=== PATIENT | male | born 1950 | race Caucasian/White ===

== ENCOUNTER 2020-06-28 14:27 | Observation (INO) | payer MEDICARE ==
[2020-06-28 14:44] LABS: ABSOLUTE BASOPHILS # (AUTO) 0.1 10^3/uL (0.0-0.2); ABSOLUTE EOSINOPHILS # (AUTO) 0.3 10^3/uL (0.0-0.6); ABSOLUTE LYMPHOCYTES (AUTO) 1.8 10^3/uL (0.5-4.7); ABSOLUTE MONOCYTES (AUTO) 0.6 10^3/uL (0.1-1.4); ABSOLUTE NEUT (AUTO) 5.1 10^3/uL (1.7-8.2); BASOPHILS % (AUTO) 1.2 % (0-2); EOSINOPHILS % (AUTO) 3.9 % (0-6); HEMATOCRIT 45.2 % (37.9-51.0); HEMOGLOBIN 15.7 g/dL (13.5-17.0); LYMPHOCYTES % (AUTO) 22.6 % (13-45); MEAN CORPUSCULAR HGB CONC 34.7 g/dL (32.0-36.0); MEAN CORPUSCULAR VOLUME 95 fl (80-97); PLATELET COUNT 207 10^3/uL (150-450); RED BLOOD COUNT 4.76 10^6/uL (4.35-5.55); RED CELL DISTRIBUTION WIDTH 12.8 % (11.5-14.0); SEGMENTED NEUTROPHILS % (AUTO) 64.3 % (42-78); TOTAL CELLS COUNTED % (AUTO) 100 %; WHITE BLOOD COUNT 7.9 10^3/uL (4.0-10.5)
--- NOTE | 2020-06-28 14:44 | RADIOLOGY REPORT (SQ) ---
EXAM DESCRIPTION: CT HEAD WITHOUT IMAGES COMPLETED DATE/TIME: 06/28/2020 2:35 pm REASON FOR STUDY: stroke s/s COMPARISON: None. TECHNIQUE: Axial images acquired through the brain without intravenous contrast. Images reviewed wi th bone, brain and subdural windows. Additional sagittal and coronal reconstructions were generated. Images stored on PACS. All CT scanners at this facility use dose modulation, iterative reconstruction, and/or weight based d osing when appropriate to reduce radiation dose to as low as reasonably achievable (ALARA). [facility]: Dose Right [facility]: CareDose [facility]: Dose Right [facility]: Teradose 4D [facility]: nanoTherics RADIATION DOSE: mGy. LIMITATIONS: None. FINDINGS: VENTRICLES: Prominent. CEREBRUM: No masses. No hemorrhage. No midline shift. Areas of low density in the white matter mos t likely due to chronic micro-vascular ischemic change. No evidence for acute infarction. CEREBELLUM: No masses. No hemorrhage. No alteration of density. No evidence for acute infarction. EXTRAAXIAL SPACES: Mild age-related involutional change. No fluid collections. No masses. ORBITS AND GLOBE: No intra- or extraconal masses. Normal contour of globe without masses. CALVARIUM: No fracture. PARANASAL SINUSES: No fluid or mucosal thickening. SOFT TISSUES: No mass or hematoma. OTHER: No other significant finding. IMPRESSION: MILD CHRONIC CHANGES OF ATROPHY AND MICROVASCULAR ISCHEMIA. NO ACUTE PROCESS. EVIDENCE OF ACUTE STROKE: NO. COMMENT: Pertinent positive or negative findings of the imaging study reported as a CRITICAL EXAM shirlene Kenny at14:36 on 06/28/2020. Category of Critical Exam: Stroke protocol TECHNICAL DOCUMENTATION: JOB ID: [id number] Quality ID # [id number]: Final reports with documentation of one or more dose reduction techniques (e.g., Au tomated exposure control, adjustment of the mA and/or kV according to patient size, use of iterative reconstruction technique) 2010 [employer]- All Rights Reserved Reading location - IP/workstation name: [email or web address]
--- NOTE | 2020-06-28 14:44 | RADIOLOGY REPORT (SQ) ---
EXAM DESCRIPTION: CHEST SINGLE VIEW IMAGES COMPLETED DATE/TIME: 06/28/2020 2:36 pm REASON FOR STUDY: stroke s/s COMPARISON: None. EXAM PARAMETERS: NUMBER OF VIEWS: One view. TECHNIQUE: Single frontal radiographic view of the chest acquired. RADIATION DOSE: NA LIMITATIONS: None. FINDINGS: LUNGS AND PLEURA: No opacities, masses or pneumothorax. No pleural effusion. MEDIASTINUM AND HILAR STRUCTURES: No masses. Contour normal. HEART AND VASCULAR STRUCTURES: Heart normal in size. Normal vasculature. BONES: No acute findings. HARDWARE: None in the chest. OTHER: No other significant finding. IMPRESSION: NO ACUTE RADIOGRAPHIC FINDING IN THE CHEST. TECHNICAL DOCUMENTATION: JOB ID: [id number] 2010 [employer]- All Rights Reserved Reading location - IP/workstation name: [email or web address]
[2020-06-28 14:47] LABS: INTERNATIONAL RATION (INR) 0.94; PARTIAL THROMBOPLASTIN TIME 32.5 SEC (23.5-35.8)
[2020-06-28 14:50] LABS: PROTHROMBIN TIME 12.8 SEC (11.4-15.4)
[2020-06-28 15:00] LABS: ALBUMIN 4.2 g/dL (3.5-5.0); ALKALINE PHOSPHATASE 75 U/L (38-126); ANION GAP 14 (5-19); ASPARTATE AMINO TRANSFERASE 26 U/L (17-59); BILIRUBIN,DIRECT 0.3 mg/dL (0.0-0.4); BILIRUBIN,TOTAL 0.7 mg/dL (0.2-1.3); BLOOD UREA NITROGEN 23 mg/dL (7-20); CALCIUM 10.5 mg/dL (8.4-10.2); CARBON DIOXIDE 23 mmol/L (22-30); CHLORIDE 97 mmol/L (98-107); CREATINE KINASE 35 U/L (55-170); POTASSIUM 4.8 mmol/L (3.6-5.0); TOTAL PROTEIN 6.8 g/dL (6.3-8.2)
[2020-06-28 15:12] LABS: CREATINE KINASE MB 1.14 ng/mL (<4.55)
[2020-06-28 15:14] LABS: GLUCOSE 525 mg/dL (75-110)
[2020-06-28 15:18] LABS: TROPONIN I < 0.012 ng/mL
[2020-06-28] MEDS ORDERED: NORMAL SALINE 1000 ML 1,000 ML IV ONE (15:43)
[2020-06-28] MEDS ORDERED: INSULIN REG, HUMAN 100 UNIT/ML 3 ML VIAL (PYX) IV ONE (15:43)
--- NOTE | 2020-06-28 15:46 | ER Document Report ---
ED Neuro Symptoms/Deficit - General Chief Complaint: S/S of Possible Stroke Stated Complaint: POSSIBLE STROKE Mode of Arrival: Medic Notes: 69-year-old man presenting to the emergency department with a history of onset of strokelike symptoms at approximately 10 AM this morning (06/28/2020). He notes slurred speech, weakness on the left side, unsteady gait, and dizziness. EMS was called and the patient was transported to the emergency department, he said his symptoms were improving however, there was some residual heaviness on the left side. Patient has a history of diabetes mellitus, right lower extremity DVT approximate 1/2 years ago he was being treated with Xarelto. He discontinued the medication 4 days ago. He denies cigarette smoking, hypertension, or a significant family history of CVA. - Related Data Allergies/Adverse Reactions: No Known Allergies Allergy (Unverified 06/28/20 15:34) Past Medical History - Social History Smoking Status: Unknown if Ever Smoked Family History: Reviewed & Not Pertinent Review of Systems - Review of Systems Notes: Constitutional: Negative for fever. HENT: Negative for sore throat. Eyes: Negative for visual changes. Cardiovascular: Negative for chest pain. Respiratory: Negative for shortness of breath. Gastrointestinal: Negative for abdominal pain, vomiting or diarrhea. Genitourinary: Negative for dysuria. Musculoskeletal: Negative for back pain. Skin: Negative for rash. Neurological: + Speech difficulties, + dizziness, + left-sided weakness 10 point ROS negative except as marked above and in HPI. Physical Exam - Vital signs Vitals: Pulse Resp BP Pulse Ox 105 H 16 167/105 H 98 06/28/20 14:30 06/28/20 14:30 06/28/20 14:30 06/28/20 14:30 - Notes Notes: PHYSICAL EXAMINATION: Physical Exam: General: Well-nourished well-developed 69-year-old man in no acute distress HEENT: NC/AT, pupils equal round and reactive to light, MM moist,nares clear, oropharynx clear, airway patent Neck: supple, no adenopathy, no masses. Good range of motion Lungs: clear, no wheezing, no rales no rhonchi CVS: Regular rate and rhythm no murmur gallop or rub Abdomen: Soft, active, nontender, no masses, no hepatosplenomegaly Ext: No edema, clubbing or cyanosis. Neuro: Alert and responsive, moving all 4 extremities on command, cranial nerves intact, speech normal, cerebellar function intact, no focal sensory or motor abnormalities noted. Skin: Intact no open lesions, no rash Course - Re-evaluation Re-evalutation: 06/28/20 15:57 Patient presented to the emergency department with an approximate 4-hour duration of strokelike symptoms. To have an elevated glucose greater than 500 in the emergency department, neurologic deficits have resolved completely. CT scan head reveals no hemorrhage, no apparent CVA. Patient is given IV fluids and a bolus dose of regular Humulin 8 units. Given the duration of his symptoms and admission for further evaluation and treatment is warranted. 06/28/20 20:49 I discussed the patient with the hospitalist, , he will admit the patient to the hospital for further evaluation and treatment. - Vital Signs Vital signs: Temp Pulse Resp BP Pulse Ox 105 H 12 141/68 H 94 06/28/20 14:30 06/28/20 15:01 06/28/20 15:00 06/28/20 15:01 - Laboratory Result Diagrams: 06/28/20 14:30 06/28/20 14:30 Laboratory results interpreted by me: 06/28/20 14:30 Sodium 133.5 L Chloride 97 L BUN 23 H Glucose 525 H* Calcium 10.5 H Creatine Kinase 35 L - Diagnostic Test Radiology reviewed: Image reviewed, Reports reviewed Radiology results interpreted by me: 06/28/20 15:59 Chest X-Ray 06/28/20 14:30 IMPRESSION: NO ACUTE RADIOGRAPHIC FINDING IN THE CHEST. Head CT 06/28/20 14:30 IMPRESSION: MILD CHRONIC CHANGES OF ATROPHY AND MICROVASCULAR ISCHEMIA. NO ACUTE PROCESS. EVIDENCE OF ACUTE STROKE: NO. - EKG Interpretation by Me Rate: Tachycardia - EKG interpreted by Dr. Kenny: Sinus tachycardia, rate 104, GA interval 196 ms, QT interval 332 ms, left axis deviation, no acute ST or T wave abnormalities, no ischemic findings, there is no prior EKG to compare. Interpretation: Sinus tachycardia ED Alteplase Inc/Exc Criteria - Inclusion Criteria: 1: Patient presented to ED within 3 hours of acute ischemic stroke symptom onset? -: No - Greater than 4 hours of symptoms 2: Did baseline CT exclude intracranial hemorrhage and/or other risk factors? -: No 3: Is the age of the patient 18 years of age or greater? -: Yes : If any of the above questions are answered "NO" then stop, patient is not a candidate for Alteplase, : If all of the above questions are answered "YES" then continue with Exclusion Criteria. - Exclusion Criteria: 1: Is there evidence of intracranial hemorrhage on baseline CT? 2: Is there suspicion of subarachnoid hemorrhage (even if CT negative)? 3: Is there a history of serious head trauma, recent previous stroke or AR within 3 months? 4: Does the patient have a clinical presentation consistent with AR or post-AR pericarditis? 5: Is there history of intracranial hemorrhage? 6: On repeated measurement is Systolic BP greater than 185mmHg or Diastolic BP greater that 110 mmHg and is aggressive treatment needed to reduce blood pressure to these limits (e.g. constant infusion of an anti-hypertensive)? 7: Did the patient awake with stroke symptoms? 8: Has the patient had a lumbar puncture or an arterial puncture at a non- compressile site within 7 days? 9: With in the last 14 days did the patient have surgery or major trauma? 10: Is the patient or less than 2 weeks? 11: Was there any active bleeding or acute trauma? 12: Does the patient have intracranial neoplasm, arteriovenous malformation or aneurysm? 13: Does the patient have abnormal glucose (less than 50 or greater than 400mg/dl)? Record glucose in Comment. 14: Patient has rapidly improving symptoms at the time Alteplase is to be Administered. 15: Does the patient have any risks for bleeding, including but not limited to: a.: Current use of Coumadin with PT greater than 15 seconds or INR greater than 1.7. b.: Current use of Pradaxa (Dabigatran). c.: Heparin administereed within the past 48 hours and PTT elevated. d.: Platelet count less than 100,000/mm. e.: Major surgery or serious trauma within 14 days. f.: Gastrointestinal or gynecological urinary bleeding within 14 days. g.: Myocardial Infarction (AR) within 3 months. : If the answer to any of the above questions is "YES" then stop, the patient is not a candidate for Alteplase. : If the answer to all of the above questions is "NO" then the patient may be eligible for the Administration of Alteplase. : If the patient is noted to have seizure activity at onset of Stroke symptoms; Consult Neurologist for further evaluation. - The patient is: -: Included and is eligible to receive Alteplase. *Initiate bed placement at higher level of care* Reviewed risks & benefits of thrombolytic therapy: I have reviewed the risks and benefits of thrombolytic therapy with the patient and/or his/her family. -: Excluded and not eligible to receive Alteplase for the above exclusions. -: Excluded and not eligible to receive Alteplase for other reasons (specify in comments): - Diagnosis of TIA: -: Patient presented with transient symptoms that are now resolved and no other neurologic findings are currently present. List symptoms in comments. -: Yes -: Patient is NOT a candidate for tPA. -: Yes -: ____(put name in comment) has been consulted for admission and con tinued evaluation of risk factor assessment. Discharge - Discharge Clinical Impression: TIA (transient ischemic attack), Poorly controlled diabetes mellitus Condition: Good Disposition: ADMITTED OBSERVATION Admitting Provider: Fercho (Hospitalist) Unit Admitted: [facility], [place]
--- NOTE | 2020-06-28 16:11 | EKG REPORT ---
SEVERITY:- ABNORMAL ECG - SINUS TACHYCARDIA LAD, CONSIDER LAFB OR INFERIOR INFARCT : Confirmed by: Andrey Dias MD 28-Jun-2020 16:10:15
[2020-06-28] MEDS ORDERED: ASPIRIN 325 MG TABLET PO ONE (16:42)
[2020-06-28] MEDS ORDERED: ACETAMINOPHEN 325 MG TABLET PO PRN (17:49)
[2020-06-28] MEDS ORDERED: DOCUSATE SODIUM 100 MG CAPSULE PO PRN (17:58)
[2020-06-28] MEDS ORDERED: ONDANSETRON HCL INJ/PF 4 MG/2 ML SDV IV PRN (17:58)
[2020-06-28] MEDS ORDERED: DEXTROSE 40% GEL 15 GM TUBE PO PRN ×2 (18:09)
[2020-06-28] MEDS ORDERED: DEXTROSE 50%-WATER 25 GM/50 ML DISP.SYRIN IV PRN ×2 (18:09)
[2020-06-28] MEDS ORDERED: GLUCAGON,HUMAN RECOMB 1 MG INJ IM PRN (18:09)
--- NOTE | 2020-06-28 18:19 | PDOC H&P ---
History of Present Illness Admission Date/PCP: 06/28/20 16:48 LAKIA NICHOLAS PA-C Patient complains of: strokelike symptoms History of Present Illness: MIHIR PERDOMO is a 69 year old male with history of diabetes mellitus not on any meds, DVT a year ago on Xarelto, who presents to the hospital with complaints of sudden onset of neurological symptoms. At 10:30 AM this morning, patient began having left-sided paresthesias in his left face, left arm and left leg. He also had accompanying weakness in his limbs. He also developed mild slurring of his speech. He called the son I saw and asked him to come to the hospital. On arrival in the ER, patient endorsed almost total resolution of his symptoms. I was informed patient was already out of the TPA window upon arrival and symptoms had essentially resolved. My encounter, patient states he is mostly back to normal with exception of some mild numbness in his left forearm. Denies any shortness of breath, chills or chest pain. Denies any prior history of strokes or TIAs. States he was diagnosed with a DVT a year ago after having a long [place] trip. Was on Xarelto but states that he is primary care doctor wanted to try him on another 3 months of Xarelto. That was a first time VTE event for him. Past Medical History Cardiac Medical History: Reports: DVT Endocrine Medical History: Reports: Diabetes Mellitus Type 2 Past Surgical History Past Surgical History: Reports: Orthopedic Surgery - left Social History Smoking Status: Never Smoker Electronic Cigarette use?: No Hx Recreational Drug Use: No - Advance Directive Resuscitation Status: Full Code Family History Family History: Other - heart aneurysm in mother. denies: CAD, CVA Parental Family History Reviewed: Yes Children Family History Reviewed: Yes Sibling(s) Family History Reviewed.: Yes Medication/Allergy Allergies/Adverse Reactions: No Known Allergies Allergy (Unverified 06/28/20 15:34) Review of Systems Constitutional: ABSENT: chills, fatigue, fever(s), headache(s) Eyes: ABSENT: visual disturbances Ears: ABSENT: hearing changes Nose, Mouth, and Throat: ABSENT: headache(s) Cardiovascular: ABSENT: chest pain Respiratory: ABSENT: cough, dyspnea Gastrointestinal: ABSENT: abdominal pain, diarrhea, nausea, vomiting Genitourinary: ABSENT: dysuria Integumentary: ABSENT: diaphoresis Neurological: PRESENT: as per HPI, dizziness, numbness, paresthesias Psychiatric: ABSENT: anxiety, hallucinations Endocrine: ABSENT: polyuria Allergic/Immunologic: ABSENT: seasonal rhinorrhea Physical Exam Vital Signs: Temp Pulse Resp BP Pulse Ox 98.6 F 105 H 20 160/92 H 97 06/28/20 14:51 06/28/20 14:30 06/28/20 17:01 06/28/20 17:01 06/28/20 17:01 Intake & Output 06/27/20 06/28/20 06/29/20 06:59 06:59 06:59 Intake Total 1000 Balance 1000 Weight 78 kg General appearance: PRESENT: no acute distress, cooperative Head exam: PRESENT: normocephalic Eye exam: PRESENT: EOMI, PERRLA. ABSENT: nystagmus, scleral icterus Mouth exam: PRESENT: neck supple Neck exam: ABSENT: JVD Respiratory exam: PRESENT: clear to auscultation yi, symmetrical, unlabored. ABSENT: tachypnea, wheezes Cardiovascular exam: PRESENT: RRR, +S1, +S2. ABSENT: tachycardia GI/Abdominal exam: PRESENT: soft. ABSENT: rebound, rigid, tenderness Extremities exam: ABSENT: calf tenderness Neurological exam: PRESENT: alert, awake, oriented to person, oriented to place, oriented to time, oriented to situation, ataxia - mild left hand ataxia on FNF test. otherwise unremarkable, CN II-XII grossly intact. ABSENT: motor sensory deficit, aphasic Psychiatric exam: ABSENT: agitated, anxious Focused psych exam: ABSENT: restlessness Skin exam: ABSENT: jaundice Results Laboratory Results: 06/28/20 14:30 06/28/20 14:30 06/28/20 06/28/20 14:30 14:30 WBC 7.9 RBC 4.76 Hgb 15.7 Hct 45.2 MCV 95 MCH 33.0 MCHC 34.7 RDW 12.8 Plt Count 207 Seg Neutrophils % 64.3 Sodium 133.5 L Potassium 4.8 Chloride 97 L Carbon Dioxide 23 Anion Gap 14 BUN 23 H Creatinine 0.71 Est GFR ( Amer) > 60 Glucose 525 H* Calcium 10.5 H Total Bilirubin 0.7 AST 26 Alkaline Phosphatase 75 Total Protein 6.8 Albumin 4.2 06/28/20 06/28/20 14:30 14:30 Creatine Kinase 35 L CK-MB (CK-2) 1.14 Troponin I < 0.012 Impressions: Chest X-Ray 06/28/20 14:30 IMPRESSION: NO ACUTE RADIOGRAPHIC FINDING IN THE CHEST. Head CT 06/28/20 14:30 IMPRESSION: MILD CHRONIC CHANGES OF ATROPHY AND MICROVASCULAR ISCHEMIA. NO ACUTE PROCESS. EVIDENCE OF ACUTE STROKE: NO. Assessment and Plan - Diagnosis (1) Stroke or transient ischemic attack (TIA) diagnosed during current admission Is this a current diagnosis for this admission?: Yes Plan: Likely patient had a TIA but is still possible it could have been a stroke as he does have a minimal ataxia of his left arm. At max his NIH score will be a 1 or 2. We will put patient on stroke protocol for now but once again bearing in mind that it is likely just had a TIA. Permissive hypertension Head CT is unremarkable Check MRI brain Carotid ultrasound Echocardiogram as outpatient Placed on cardiac monitoring EKG in the morning Lipid panel Aspirin, atorvastatin and Plavix (2) Hyperglycemia due to diabetes mellitus Is this a current diagnosis for this admission?: Yes Plan: Blood glucose in the 500s. Patient is notably not on any diabetic meds. He has tried insulin in the past but did not like the reaction. We will check hemoglobin A1c Received some IV insulin and normal saline bolus in the ER. Accu-Cheks and sliding scale insulin initiated (3) History of DVT (deep vein thrombosis) Is this a current diagnosis for this admission?: Yes Plan: History of provoked DVT a year ago ideally should only require about 3 to 6 months max of therapy. However for some reason still on Xarelto. We will check venous Dopplers (4) Hyponatremia Is this a current diagnosis for this admission?: Yes Plan: Monitor metabolic panel. - Time Time Spent with patient: 35 or more minutes Anticipated Discharge Disposition: Home, Self Care Anticipated Discharge Timeframe: within 24 hours
--- NOTE | 2020-06-28 19:33 | RADIOLOGY REPORT (SQ) ---
EXAM DESCRIPTION: MRI HEAD WITHOUT IMAGES COMPLETED DATE/TIME: 06/28/2020 7:21 pm REASON FOR STUDY: stroke protocol R55 SYNCOPE AND COLLAPSE E08.65 DIABETES DUE TO UNDERLYING CONDI TION W HYPERGLYCEMIA E78.00 PURE HYPERCHOLESTEROLEMIA, UNSPECIFIED COMPARISON: None. Brain CT same day TECHNIQUE: Multiplanar imaging includes non-contrasted T1, T2, FLAIR, and Diffusion with ADC map seq uences. Images stored on PACS. LIMITATIONS: None. FINDINGS: ANATOMY: No anomalies. Normal vascular flow voids. Pituitary fossa normal. CSF SPACES: Normal in size and contour. No hemorrhage. CEREBRUM: A few high-signal intensity lesions scattered throughout the white matter on FLAIR imaging with distribution suggesting chronic micro-vascular ischemic change. Sulci and gyri normal in size a nd contour. No evidence of hemorrhage, mass or extraaxial fluid collection. POSTERIOR FOSSA: No signal alteration. No hemorrhage. No edema, masses or mass effect. Internal brandi tory canals, cerebello-pontine angles, mastoids normal. DIFFUSION: Restricted diffusion basal ganglia on the right. ORBITS: No masses. Globes normal. PARANASAL SINUSES: No fluid levels. Mucosa normal. OTHER: No other significant finding. IMPRESSION: Acute infarction basal ganglia on the right. Mild microvascular ischemic changes. EVIDENCE OF ACUTE STROKE: YES. RIGHT MCA. COMMENT: The findings were sent to the Radiology Results Communication Center at 19:26 on 0 to be communicated to a licensed caregiver. TECHNICAL DOCUMENTATION: JOB ID: [id number] 2010 [employer]- All Rights Reserved Reading location - IP/workstation name: [email or web address]
--- NOTE | 2020-06-28 19:34 | RADIOLOGY REPORT (SQ) ---
EXAM DESCRIPTION: MRA HEAD WITHOUT IMAGES COMPLETED DATE/TIME: 06/28/2020 7:21 pm REASON FOR STUDY: CVA R55 SYNCOPE AND COLLAPSE E08.65 DIABETES DUE TO UNDERLYING CONDITION W HYPER GLYCEMIA E78.00 PURE HYPERCHOLESTEROLEMIA, UNSPECIFIED COMPARISON: None. TECHNIQUE: Axial 3-D [id number] acquisition imaging performed through the brain in the area of t he [place]. Images reformatted using 3-D MIPS. LIMITATIONS: None. FINDINGS: SOURCE IMAGES: No unexpected findings on source images. No large masses. 3-D MIP: No aneurysm. No occlusions. No significant stenosis. OTHER: No other significant finding. IMPRESSION: NORMAL MRA OF THE [place] OF [place]. TECHNICAL DOCUMENTATION: JOB ID: [id number] 2010 [employer]- All Rights Reserved Reading location - IP/workstation name: [email or web address]
--- NOTE | 2020-06-28 20:34 | RADIOLOGY REPORT (SQ) ---
EXAM DESCRIPTION: US EXTREMITY VEINS BILATERAL COMPLETED DATE/TME: 06/28/2020 00:00 CLINICAL HISTORY: 69 years, Male, lower ext swelling. hx of dvt COMPARISON: None. TECHNIQUE: Axial 2-D grayscale images of the lower extremities were acquired. Doppler was utilized. LIMITATIONS: None. FINDINGS: Bilateral common femoral, femoral, popliteal, posterior tibial, peroneal, greater saphenous, and small saphenous veins demonstrate normal compressibility and phasicity bilaterally. Superficial soft tissues show no suspicious abnormality. IMPRESSION: No evidence of deep venous thrombosis about either lower extremity. copyright 2010 [employer]- All Rights Reserved
--- NOTE | 2020-06-28 20:38 | RADIOLOGY REPORT (SQ) ---
EXAM DESCRIPTION: US CAROTID DOPPLER BILATERAL COMPLETED DATE/TME: 06/28/2020 17:55 CLINICAL HISTORY: 69 years, Male, stroke/tia COMPARISON: None. TECHNIQUE: Axial 2-D grayscale images of the neck were acquired. Doppler was utilized. LIMITATIONS: None. FINDINGS: Duplex examination of the extracranial carotid artery systems was performed bilaterally. Areas of [id number] calcified and noncalcified atheromatous plaquing bilaterally. Vertebral artery flows are antegrade. Peak systolic (PS) and end diastolic (ED) velocities are as follows: RIGHT SIDE Proximal CCA: PS 82 cm/s. ED 16 cm/s. Distal CCA: PS 75 cm/s. ED 15 cm/s. Proximal ICA: PS 58 cm/s. ED 17 cm/s. Distal ICA: PS 70 cm/s. ED 27 cm/s. ECA: 98 cm/s. ICA/CCA PS ratio: 0.9 Vertebral artery: 29 cm/s; antegrade flow LEFT SIDE Proximal CCA: PS 99 cm/s. ED 13 cm/s. Distal CCA: PS 84 cm/s. ED 17 cm/s. Proximal ICA: PS 74 cm/s. ED 26 cm/s. Distal ICA: PS 70 cm/s. ED 27 cm/s. ECA: 103 cm/s. ICA/CCA PS ratio: 0.9 Vertebral artery: 34 cm/s; antegrade flow IMPRESSION: No evidence for hemodynamically significant stenosis in the extracranial carotid arteries bilaterally (less than 50% stenosis bilaterally). copyright 2010 [facility] [employer]- All Rights Reserved
[2020-06-28] MEDS: CLOPIDOGREL BISULFATE 75 MG TABLET PO SCH (21:44)
[2020-06-28] MEDS: INSULIN LISPRO 100 UNIT/ML 3 ML VIAL SUBCUT SCH (21:44)
[2020-06-28] MEDS: FAMOTIDINE 20 MG TABLET PO SCH (21:44)
[2020-06-28] MEDS ORDERED: ATORVASTATIN CALCIUM 80 MG TABLET PO SCH (22:00)
[2020-06-29] MEDS ORDERED: NORMAL SALINE 1000 ML 1,000 ML IV PRN (01:32)
[2020-06-29 05:17] LABS: HEMATOCRIT 44.1 % (37.9-51.0); HEMOGLOBIN 15.3 g/dL (13.5-17.0); MEAN CORPUSCULAR HEMOGLOBIN 32.6 pg (27.0-33.4); MEAN CORPUSCULAR HGB CONC 34.6 g/dL (32.0-36.0); MEAN CORPUSCULAR VOLUME 94 fl (80-97); PLATELET COUNT 202 10^3/uL (150-450); RED BLOOD COUNT 4.69 10^6/uL (4.35-5.55); RED CELL DISTRIBUTION WIDTH 12.9 % (11.5-14.0); WHITE BLOOD COUNT 6.7 10^3/uL (4.0-10.5)
[2020-06-29 05:26] LABS: ANION GAP 11 (5-19); BLOOD UREA NITROGEN 20 mg/dL (7-20); CALCIUM 9.7 mg/dL (8.4-10.2); CARBON DIOXIDE 23 mmol/L (22-30); CHLORIDE 103 mmol/L (98-107); CHOLESTEROL 152.72 mg/dL (0-200); GLUCOSE 299 mg/dL (75-110); POTASSIUM 4.3 mmol/L (3.6-5.0); TRIGLYCERIDES 102 mg/dL (<150)
[2020-06-29 05:37] LABS: DIRECT LDL 95 mg/dL (<100)
--- NOTE | 2020-06-29 07:02 | EKG REPORT ---
SEVERITY:- ABNORMAL ECG - SINUS RHYTHM LEFT ANTERIOR FASCICULAR BLOCK CONSIDER ANTERIOR INFARCT : Confirmed by: Andrey Dias MD 29-Jun-2020 07:00:50
[2020-06-29] MEDS: INSULIN LISPRO 100 UNIT/ML 3 ML VIAL SUBCUT SCH ×2 (07:54→11:52)
[2020-06-29] MEDS ORDERED: ASPIRIN 81 MG TABLET, ENT COATED PO SCH (10:00)
[2020-06-29] MEDS ORDERED: ENOXAPARIN SODIUM INJ 40 MG/0.4 ML DISP.SYRIN SUBCUT SCH (10:00)
[2020-06-29] MEDS: CLOPIDOGREL BISULFATE 75 MG TABLET PO SCH (10:46)
[2020-06-29] MEDS: FAMOTIDINE 20 MG TABLET PO SCH (10:46)
[2020-06-29] MEDS ORDERED: LOSARTAN POTASSIUM 50 MG TABLET PO ONE (10:50)
[2020-06-29] MEDS ORDERED: HYDROCHLOROTHIAZIDE 12.5 MG TABLET PO ONE (10:50)
[2020-06-29] MEDS ORDERED: INSULIN GLARGINE,HUM.REC.ANLOG 1,000 UNIT/10 ML VIAL SUBCUT SCH (11:00)
[2020-06-29 11:56] VITALS: BP 156/90
--- NOTE | 2020-06-29 12:09 | PDOC DISCHARGE SUMMARY ---
Impression - Admit/DC Date/PCP Admission Date/Primary Care Provider: 06/28/20 16:48 LAKIA NICHOLAS PA-C Discharge Date: 06/29/20 - Discharge Diagnosis (1) CVA (cerebral vascular accident) Is this a current diagnosis for this admission?: Yes (2) Hypertension Is this a current diagnosis for this admission?: Yes (3) Hyperglycemia due to diabetes mellitus Is this a current diagnosis for this admission?: Yes (4) Hyponatremia Is this a current diagnosis for this admission?: Yes - Additional Information Resuscitation Status: Full Code Discharge Diet: Diabetic Discharge Activity: Activity As Tolerated Referrals: LAKIA NICHOLAS PA-C [Primary Care Provider] - Prescriptions: Lancets [2-in-1 Lancet Device] 1 each MC TID #100 each Blood Sugar Diagnostic [Accu-Chek Guide Test Strip] 1 each MC TID #100 strip Insulin Glargine,Hum.rec.anlog [Basaglar Kwikpen U-100] 10 unit SQ BID #2 insuln.pen Aspirin [Ecotrin 81 mg EC Tablet] 81 mg PO DAILY #30 tabec Pen Needle, Diabetic [Insulin Pen Needle] 1 each MC BID #100 dis.needle Atorvastatin Calcium [Lipitor 80 mg Tablet] 80 mg PO QHS #30 tablet Losartan/Hydrochlorothiazide [Losartan-Hctz 50-12.5 mg Tab] 1 each PO DAILY #30 tablet Clopidogrel Bisulfate [Plavix 75 mg Tablet] 75 mg PO DAILY 20 Days #20 tablet Home Medications: Aspirin [Ecotrin 81 mg EC Tablet] 81 mg PO DAILY #30 tabec 06/29/20 Atorvastatin Calcium [Lipitor 80 mg Tablet] 80 mg PO QHS #30 tablet 06/29/20 Blood Sugar Diagnostic [Accu-Chek Guide Test Strip] 1 each MC TID #100 strip 06/29/20 Clopidogrel Bisulfate [Plavix 75 mg Tablet] 75 mg PO DAILY 20 Days #20 tablet 06/29/20 Insulin Glargine,Hum.rec.anlog [Basaglar Kwikpen U-100] 10 unit SQ BID #2 insuln.pen 06/29/20 Lancets [2-in-1 Lancet Device] 1 each MC TID #100 each 06/29/20 Losartan/Hydrochlorothiazide [Losartan-Hctz 50-12.5 mg Tab] 1 each PO DAILY #30 tablet 06/29/20 Pen Needle, Diabetic [Insulin Pen Needle] 1 each MC BID #100 dis.needle 06/29/20 History of Present Illiness History of Present Illness: As per admitting HPI 06/28/[address] Brantley "MIHIR PERDOMO is a 69 year old male with history of diabetes mellitus not on any meds, DVT a year ago on Xarelto, who presents to the hospital with complaints of sudden onset of neurological symptoms. At 10:30 AM this morning, patient began having left-sided paresthesias in his left face, left arm and left leg. He also had accompanying weakness in his limbs. He also developed mild slurring of his speech. He called the son I saw and asked him to come to the hospital. On arrival in the ER, patient endorsed almost total resolution of his symptoms. I was informed patient was already out of the TPA window upon arrival and symptoms had essentially resolved. My encounter, patient states he is mostly back to normal with exception of some mild numbness in his left forearm. Denies any shortness of breath, chills or chest pain. Denies any prior history of strokes or TIAs. States he was diagnosed with a DVT a year ago after having a [place]. Was on Xarelto but states that he is primary care doctor wanted to try him on another 3 months of Xarelto. That was a first time VTE event for him." Hospital Course Hospital Course: Mihir Pires is a 69 year old male presented to the emergency room with complaints of left-sided paresthesias face, left arm and left leg. With associated weakness in limbs mild slurring of speech. Patient with almost full resolution of symptoms on arrival to the ED. Residual focal neurological deficit of mild ataxia left arm noted on exam. At presentation his NIH score was 1-2. He was placed on stroke protocol. CT head with no acute process. MRI of the head notable for acute infarction right basal ganglia with mild microvascular ischemic changes. Carotid ultrasound notable for stenosis less than 50%. Echo obtained as outpatient. EKG and telemetry without atrial fibrillation. 24 hours of permissive hypertension initiated. He was started on aspirin, atorvastatin and 21 day rx of Plavix. Patient's blood pressure noted to be con sistently 164 90 over entire course of visit. No previous HTN therapy. We will initiate losartan 12.5/HCTZ 50 mg daily. Patient with history of diabetes though states this is diet controlled. Glucose at time of admission was 525. Hemoglobin A1c found to be greater than 14. Insulin and sliding scale coverage initiated. We will start him on outpatient Lantus 10 units twice daily. He is to check his blood sugar before breakfast, dinner, and bedtime. Patient received diabetic education. Historically on Xarelto for provoked DVT greater than 1 year ago. Venous doppler study completed, without DVT. Pt instructed to discontinue Xarelto at this time, no current indication for use. Pt with mild residual effect primarily left arm. Pt evaluated by PT. Recommend outpatient PT follow up. He is stable for discharge at this time. Physical Exam Vital Signs: Temp Pulse Resp BP Pulse Ox 97.7 F 84 16 180/86 H 93 06/29/20 08:24 06/29/20 08:00 06/29/20 08:00 06/29/20 08:00 06/29/20 08:00 Intake & Output 06/28/20 06/29/20 06/30/20 06:59 06:59 06:59 Intake Total 1250 Output Total 450 Balance 800 Weight 85.3 kg General appearance: PRESENT: no acute distress, cooperative, well-developed, well-nourished Head exam: PRESENT: atraumatic, normocephalic Eye exam: PRESENT: EOMI, PERRLA. ABSENT: scleral icterus Mouth exam: PRESENT: moist, tongue midline Neck exam: PRESENT: full ROM. ABSENT: JVD, tenderness Respiratory exam: PRESENT: clear to auscultation yi, symmetrical, unlabored. ABSENT: rales, rhonchi, tachypnea, wheezes Cardiovascular exam: PRESENT: RRR, +S1, +S2. ABSENT: diastolic murmur, systolic murmur, tachycardia Pulses: PRESENT: normal radial pulses GI/Abdominal exam: PRESENT: normal bowel sounds, soft. ABSENT: tenderness Extremities exam: PRESENT: full ROM. ABSENT: pedal edema, tenderness Musculoskeletal exam: PRESENT: ambulatory, full ROM. ABSENT: deformity, dislocation Neurological exam: PRESENT: alert, awake, oriented to person, oriented to place, oriented to time, oriented to situation, motor sensory deficit - Mild ataxia FNF left hand, singificantly improved from yesterday. ABSENT: altered Psychiatric exam: PRESENT: appropriate affect, normal mood Skin exam: PRESENT: dry, intact, warm Results Laboratory Results: WBC 6.7 10^3/uL (4.0-10.5) 06/29/20 04:40 RBC 4.69 10^6/uL (4.35-5.55) 06/29/20 04:40 Hgb 15.3 g/dL (13.5-17.0) 06/29/20 04:40 Hct 44.1 % (37.9-51.0) 06/29/20 04:40 MCV 94 fl (80-97) 06/29/20 04:40 MCH 32.6 pg (27.0-33.4) 06/29/20 04:40 MCHC 34.6 g/dL (32.0-36.0) 06/29/20 04:40 RDW 12.9 % (11.5-14.0) 06/29/20 04:40 Plt Count 202 10^3/uL (150-450) 06/29/20 04:40 Lymph % (Auto) 22.6 % (13-45) 06/28/20 14:30 [place] % (Auto) 8.0 % (3-13) 06/28/20 14:30 Eos % (Auto) 3.9 % (0-6) 06/28/20 14:30 Baso % (Auto) 1.2 % (0-2) 06/28/20 14:30 Absolute Neuts (auto) 5.1 10^3/uL (1.7-8.2) 06/28/20 14:30 Absolute Lymphs (auto) 1.8 10^3/uL (0.5-4.7) 06/28/20 14:30 Absolute Monos (auto) 0.6 10^3/uL (0.1-1.4) 06/28/20 14:30 Absolute Eos (auto) 0.3 10^3/uL (0.0-0.6) 06/28/20 14:30 Absolute Basos (auto) 0.1 10^3/uL (0.0-0.2) 06/28/20 14:30 Seg Neutrophils % 64.3 % (42-78) 06/28/20 14:30 PT 12.8 SEC (11.4-15.4) 06/28/20 14:30 INR 0.94 06/28/20 14:30 APTT 32.5 SEC (23.5-35.8) 06/28/20 14:30 Sodium 137.4 mmol/L (137-145) 06/29/20 04:40 Potassium 4.3 mmol/L (3.6-5.0) 06/29/20 04:40 Chloride 103 mmol/L (98-107) 06/29/20 04:40 Carbon Dioxide 23 mmol/L (22-30) 06/29/20 04:40 Anion Gap 11 (5-19) 06/29/20 04:40 BUN 20 mg/dL (7-20) 06/29/20 04:40 Creatinine 0.72 mg/dL (0.52-1.25) 06/29/20 04:40 Est GFR ( Amer) > 60 (>60) 06/29/20 04:40 Est GFR (MDRD) Non-Af > 60 (>60) 06/29/20 04:40 Glucose 299 mg/dL (75-110) H 06/29/20 04:40 POC Glucose 316 mg/dL (70-110) H 06/29/20 11:22 Hemoglobin A1c % > 14.0 % (4.7-6.0) H 06/29/20 04:40 Calcium 9.7 mg/dL (8.4-10.2) 06/29/20 04:40 Total Bilirubin 0.7 mg/dL (0.2-1.3) 06/28/20 14:30 Direct Bilirubin 0.3 mg/dL (0.0-0.4) 06/28/20 14:30 Neonat Total Bilirubin Not Reportable 06/28/20 14:30 Neonat Direct Bilirubin Not Reportable 06/28/20 14:30 Neonat Indirect Bili Not Reportable 06/28/20 14:30 AST 26 U/L (17-59) 06/28/20 14:30 ALT 27 U/L (<50) 06/28/20 14:30 Alkaline Phosphatase 75 U/L (38-126) 06/28/20 14:30 Creatine Kinase 35 U/L (55-170) L 06/28/20 14:30 CK-MB (CK-2) 1.14 ng/mL (<4.55) 06/28/20 14:30 Troponin I < 0.012 ng/mL 06/28/20 14:30 Total Protein 6.8 g/dL (6.3-8.2) 06/28/20 14:30 Albumin 4.2 g/dL (3.5-5.0) 06/28/20 14:30 Triglycerides 102 mg/dL (<150) 06/29/20 04:40 Cholesterol 152.72 mg/dL (0-200) 06/29/20 04:40 LDL Cholesterol Direct 95 mg/dL (<100) 06/29/20 04:40 VLDL Cholesterol 20.0 mg/dL (10-31) 06/29/20 04:40 HDL Cholesterol 46 mg/dL (>40) 06/29/20 04:40 06/28/20 14:30 CK-MB (CK-2) 1.14 Troponin I < 0.012 Impressions: Brain MRI with MRA 06/28/20 00:00 IMPRESSION: NORMAL MRA OF THE [place] OF [place]. Head MRI 06/28/20 00:00 IMPRESSION: Acute infarction basal ganglia on the right. Mild microvascular ischemic changes. EVIDENCE OF ACUTE STROKE: YES. RIGHT MCA. Venous Doppler Study 06/28/20 00:00 IMPRESSION: No evidence of deep venous thrombosis about either lower extremity. copyright 2010 [employer]- All Rights Reserved Chest X-Ray 06/28/20 14:30 IMPRESSION: NO ACUTE RADIOGRAPHIC FINDING IN THE CHEST. Head CT 06/28/20 14:30 IMPRESSION: MILD CHRONIC CHANGES OF ATROPHY AND MICROVASCULAR ISCHEMIA. NO ACUTE PROCESS. EVIDENCE OF ACUTE STROKE: NO. Carotid Doppler Study 06/28/20 17:55 IMPRESSION: No evidence for hemodynamically significant stenosis in the extracranial carotid arteries bilaterally (less than 50% stenosis bilaterally). copyright 2010 [employer]- All Rights Reserved Plan Plan of Treatment: CVA: Aspirin, atorvastatin and Plavix (21 days) Hyperglycemia due to diabetes mellitus: Lantus 10untis twice daily. History of DVT (deep vein thrombosis: Provoked DVT >1 year ago. Stop Xarelto. Hypertension: Losartan 50/Hctz 12.5 daily Time Spent: Greater than 30 Minutes Stroke Is this a Stroke Patient?: Yes Stroke Pt being discharged on Anti-thrombolytic therapy?: Yes Stroke Pt being discharged on Anti-coagulation therapy?: No Reason(s) for not prescribing Anti-coagulation therapy:: Not indicated Stroke Pt being discharged on Statins?: Yes Acute Heart Failure Is this a Heart Failure Patient?: No
[2020-06-30] MEDS ORDERED: HYDROCHLOROTHIAZIDE 12.5 MG TABLET PO SCH (08:00)
[2020-06-30] MEDS ORDERED: LOSARTAN POTASSIUM 50 MG TABLET PO SCH (10:00)
== END 2020-06-29 14:04 | disposition home health service (06) ==
LOC: ER 14:27 → EH 16:48 → 3W 18:40
PROVIDERS: ADMIT Internal Medicine; ATTEND Physician Assistant
DX: I63.89 Other cerebral infarction (principal); R47.81 Slurred speech; R20.0 Anesthesia of skin; R27.0 Ataxia, unspecified; R20.2 Paresthesia of skin; G81.94 Hemiplegia, unspecified affecting left nondominant side; I10 Essential (primary) hypertension; E11.65 Type 2 diabetes mellitus with hyperglycemia; E87.1 Hypo-osmolality and hyponatremia; Z86.718 Personal history of other venous thrombosis and embolism; R29.702 NIHSS score 2; Z79.01 Long term (current) use of anticoagulants
CPT/HCPCS: 93005 ×2; 99285; 96374; 36415 ×2; 82553; 82962 ×2; 82550; 85025; 85027; 85610; 85730; 80048; 80053; 84484; 83036; 80061; 93970; 93880; 70551; 70544; 71045; 70450; 93010 ×2; 97530; 97162; G0378 ×2; A9270 ×13; J1650; J3490; J7030 ×2; J1815